=== PATIENT | male | born 1990 | race Two or more races ===

== ENCOUNTER → 2020-05-31 | Outpatient (CLI) | payer OTHER ==
--- NOTE | 2020-06-01 09:21 | EEG ---
DATE OF SERVICE: 05/31/2020 EGG NUMBER: [id number]. OBJECTIVE: The patient is a 29-year-old male with possible seizures. DESCRIPTION: This is a digital study. Electrodes are placed according to the international 10-20 system. Bipolar and referential montages are available. Activation procedures typically include hyperventilation and intermittent photic stimulation. INTERPRETATION: The waking background consists of 9-10 Hz, 50-100 microvolt activity, symmetrically distributed over parietooccipital regions and reactive to eye opening. Hyperventilation and intermittent photic stimulation are noncontributory. Stage 2 sleep is achieved with normal electroencephalogram patterns. IMPRESSION: This electroencephalogram, with the patient awake and asleep, is within normal limits. There is no focal, paroxysmal, or epileptiform activity. Thank you for letting us help with the patient's care. RIGOBERTO HERNANDEZ MD DR: CIELO/km JOB#: [id number] / [id number] Ren Piña
== END ==
LOC: RT 08:11
PROVIDERS: ATTEND Nurse Practitioner Family
DX: G40.909 Epilepsy, unspecified, not intractable, without status epilepticus (principal)
CPT/HCPCS: 95816